=== PATIENT | male | born 1990 | race Caucasian/White ===

== ENCOUNTER 2020-11-27 21:34 | Emergency (ER) | payer SELFPAY ==
[~2020-11-27] VITALS: Ht 190.5 cm; Wt 91.7 kg
[2020-11-27 21:35] VITALS: BP 163/91
== END 2020-11-27 22:36 | disposition left against medical advice (07) ==
LOC: M ED 21:34
DX: Z53.21 Procedure and treatment not carried out due to patient leaving prior to being seen by health care provider (principal)